=== PATIENT | female | born 1990 ===

== ENCOUNTER 2025-05-15 12:34 | Outpatient (CLI) | payer BC, SELFPAY ==
[2025-05-15 12:49] LABS: HCT 40.0 % (36.0-46.0); HGB 13.3 g/dL (11.2-15.7); MCH 26.4 pg (27.0-33.0); MCHC 33.3 % (32.0-36.0); MCV 79 fL (80-95); MPV 9.4 fL (8.0-11.0); Platelet Count 297 10^3/uL (130-400); RBC 5.04 10^6/uL (3.93-5.22); RDW 12.7 % (11.7-14.6); RDW-SD 36.1 fL; WBC 6.99 10^3/uL (4.4-10.8)
[2025-05-15 13:36] LABS: Ferritin 31 ng/mL (8-252); TSH (W/Ref FT4) 2.36 uIU/mL (0.36-3.74)
[2025-05-15 14:21] LABS: Iron 55 ug/dL (50-170); Total Iron Binding Capacity 352 ug/dL (250-450); Transferrin Sat 16 % (15-50)
[2025-05-17 15:10] LABS: Coag FactorVIII Activity Assay 104 % (55 - 200)
== END 2025-05-15 12:35 | disposition home or self-care (01) ==
LOC: LBO 12:34
PROVIDERS: Visit Provider Obstetrics & Gynecology
DX: N93.9 Abnormal uterine and vaginal bleeding, unspecified (principal); Z87.59 Personal history of other complications of pregnancy, childbirth and the puerperium; R23.3 Spontaneous ecchymoses; D64.9 Anemia, unspecified
CPT/HCPCS: 36415; 85027; 85240; 85246; 85390; 85397; 82728; 83540; 83550; 84443